=== PATIENT | male | born 1980 | race Caucasian/White ===

== ENCOUNTER 2024-09-01 08:51 | Outpatient (CLI) | payer OTHER | END 2024-09-01 08:52 | disposition home or self-care (01) | LOC: CSHULT 08:51 | PROVIDERS: ATTEND Family Medicine | DX: R10.11 Right upper quadrant pain (principal); K86.9 Disease of pancreas, unspecified; K76.0 Fatty (change of) liver, not elsewhere classified; K76.9 Liver disease, unspecified | CPT/HCPCS: 76705 ==

== ENCOUNTER 2024-09-08 10:43 | Outpatient (CLI) | payer OTHER ==
[2024-09-08] MEDS ORDERED: Iopamidol 300 61% 100 ML VIAL FS ONE (13:39)
== END 2024-09-08 10:44 | disposition home or self-care (01) ==
LOC: CSHCT 10:43
PROVIDERS: ATTEND Family Medicine
DX: K86.9 Disease of pancreas, unspecified (principal); K76.0 Fatty (change of) liver, not elsewhere classified
CPT/HCPCS: 74170; Q9967